=== PATIENT | male | born 2005 | race Caucasian/White ===

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

== ENCOUNTER → 2024-09-21 12:16 | Outpatient (CLI) | payer BC, SELFPAY ==
--- NOTE | 2024-09-21 12:51 | EKG_ITS ---
[place] [id number] [address] [place] [id number] Test Date: 2024-09-21 Pat Name: Krishna Medellin Department: [facility] Room: Gender: Male [employer] Intern: BILL : 2005 Requested By: Order Number: [id number] Reading MD: Ruben Rudd Measurements Intervals [place] Rate: 83 P: 13 AK: 132 QRS: 11 QRSD: 80 T: 39 QT: 358 QTc: 420 Interpretive Statements Normal sinus rhythm Electronically Signed On 09-21-2024 12:58:08 PST by Ruben Rudd
[2024-09-21 12:55] LABS: Add Manual Diff / Slide Review NO; Basophils Absolute Auto 100 /uL (0-100); Basophils Percent Auto 0.8 % (0-2); Eosinophils Absolute Auto 200 /uL (0-450); Eosinophils Percent Auto 2.2 % (2-4); Hematocrit 47.1 % (41-53); Hemoglobin 15.7 g/dL (13.5-17.5); Lymphocytes Absolute Auto 2900 /uL (1100-4500); Lymphocytes Percent Auto 26.5 % (25-40); Mean Corpuscular HGB Conc 33.3 % (30-36); Mean Corpuscular Hemoglobin 25.7 PG (26-34); Mean Corpuscular Volume 77.2 fL (80-100); Monocytes Absolute Auto 700 /uL (0-900); Monocytes Percent Auto 6.7 % (3-14); Neutrophils Absolute Auto 6900 /uL (1500-7000); Neutrophils Percent Auto 63.8 % (50-75); Platelet Count 385 X10^3/uL (150-400); White Blood Cell Count 10.8 X10^3/uL (4.5-11.0)
[2024-09-21 13:08] LABS: Hemoglobin A1C% w Est Avg Glu 5.3 % (4.0-6.0)
[2024-09-21 13:20] LABS: Alanine Aminotransferase 51 IU/L (<50); Albumin 4.2 g/dL (3.5-5.0); Albumin Globulin Ratio 1.3 (1.0-2.8); Alkaline Phosphatase 87 U/L (38-126); Aspartate Aminotransferase 45 IU/L (17-59); BUN Creatinine Ratio 13.2 (6-22); Blood Urea Nitrogen 10 mg/dL (9-20); Calcium 9.3 mg/dL (8.4-10.2); Carbon Dioxide 23 mmol/L (22-32); Chloride 106 mmol/L (98-107); Cholesterol 211 mg/dL (140-199); Estimated Glomerular Filt Rate > 60 mL/min (>60); Globulin 3.2 g/dL (1.7-4.1); Glucose 88 mg/dL (70-100); HDL Cholesterol 38 mg/dL (40-60); HEMOLYSIS < 15 (0-50); LDL Cholesterol Calculated 144 mg/dL (<100); Potassium 4.4 mmol/L (3.4-5.1); Sodium 138 mmol/L (137-145); Total Protein 7.4 g/dL (6.3-8.2); Triglycerides 146 mg/dL (35-150)
[2024-09-21 15:04] LABS: Vitamin D 25 Hydroxy (D3) 15.8 ng/mL (30.0-100.0)
== END ==
PROVIDERS: Family Provider Pediatrics; PCP Family Medicine; Referring Provider Family Medicine; Visit Provider Family Medicine
DX: E55.9 Vitamin D deficiency, unspecified (principal); E66.01 Morbid (severe) obesity due to excess calories; E78.5 Hyperlipidemia, unspecified
CPT/HCPCS: 36415; 80053; 80061; 82306; 83036; 85025; 93005

== ENCOUNTER → 2025-02-09 09:49 | Outpatient (CLI) | payer BC, SELFPAY ==
[2025-02-09 10:09] LABS: Hematocrit 45.3 % (41-53); Hemoglobin 15.2 g/dL (13.5-17.5); Mean Corpuscular HGB Conc 33.6 % (30-36); Mean Corpuscular Hemoglobin 25.7 PG (26-34); Mean Corpuscular Volume 76.6 fL (80-100); Platelet Count 346 X10^3/uL (150-400); Red Blood Cell Count 5.91 X10^6/uL (4.5-5.9); White Blood Cell Count 10.9 X10^3/uL (4.5-11.0)
[2025-02-09 10:42] LABS: HEMOLYSIS < 15 (0-50); Iron 68 ug/dL (49-181)
[2025-02-09 10:53] LABS: Percent Iron Saturation 16 % (20-50); Total Iron Binding Capacity 415 ug/dL (261-462); Transferrin 339 mg/dL (206-381)
[2025-02-09 10:59] LABS: Vitamin D 25 Hydroxy (D3) 23.7 ng/mL (30.0-100.0)
[2025-02-09 11:18] LABS: Ferritin 40 ng/mL (18-464)
== END ==
PROVIDERS: Family Provider Pediatrics; PCP Family Medicine; Referring Provider Family Medicine; Visit Provider Family Medicine
DX: R71.8 Other abnormality of red blood cells (principal); E55.9 Vitamin D deficiency, unspecified
CPT/HCPCS: 36415; 82306; 82728; 83540; 83550; 85027